=== PATIENT | female | born 1985 | race Caucasian/White ===

== ENCOUNTER → 2023-12-03 10:36 | Outpatient (REF) | payer OTHER, SELFPAY | LOC: RAD 10:36 | PROVIDERS: ATTENDING PHYSICIAN Obstetrics & Gynecology; FAMILY PHYSICIAN Family Medicine | DX: O09.519 Supervision of elderly primigravida, unspecified trimester (principal); O09.529 Supervision of elderly multigravida, unspecified trimester; Z36.0 Encounter for antenatal screening for chromosomal anomalies | CPT/HCPCS: 76815 ==

== ENCOUNTER 2023-12-03 11:11 | Observation (INO) | payer OTHER, SELFPAY ==
[2023-12-03 11:20] VITALS: BP 100/61; BMI 27.3
== END 2023-12-03 12:27 | disposition home or self-care (01) ==
LOC: LDRP 11:11
PROVIDERS: ADMITTING PHYSICIAN Obstetrics & Gynecology; FAMILY PHYSICIAN Family Medicine
DX: O48.0 Post-term pregnancy (principal); Z3A.40 40 weeks gestation of pregnancy
CPT/HCPCS: 59025; 36415; 76815; 86850; 86900; 86901; G0378

== ENCOUNTER 2023-12-06 19:20 | Inpatient (IN) | payer OTHER, SELFPAY ==
[2023-12-06 20:02] VITALS: BMI 27.5
[2023-12-06 20:04] VITALS: BP 114/65
[2023-12-06] MEDS: CYTOTEC 25 MICROGRAM VAG (20:27)
[2023-12-06] MEDS: LR 1000 IV (20:27)
[2023-12-06 20:31] LABS: % Basophils 0.2 % (0-2); % Eosinophils 0.8 % (0-6); % Immature Granulocytes 1.4 % (0-0.5); % Lymphocytes 24.8 % (20.5-51.1); % Monocytes 6.9 % (1.7-9.3); % Neutrophils 65.9 % (42.2-75.2); Absolute Eosinophils 0.1 10^3/uL (0-0.7); Absolute Immature Granulocytes 0.1 10^3/uL (0-0.05); Absolute Lymphocytes 2.1 10^3/uL (1.2-3.4); Absolute Monocytes 0.6 10^3/uL (0.1-0.6); Absolute Neutrophils 5.7 10^3/uL (1.4-6.5); Hemoglobin 12.3 g/dL (12.0-16.0); Mean Corp Hgb Conc. 36.2 g/dL (33.0-37.0); Mean Corpuscular Hgb 33.4 pg (27.0-31.0); Mean Corpuscular Volume 92.4 fL (81.0-99.0); Mean Platelet Volume 10.7 fL (7.4-10.4); Nucleated Red Blood Cells % 0 %; Platelet Count 198 10^3/uL (130-400); Red Blood Cell Count 3.68 10^6/uL (4.20-5.40); White Blood Cell Count 8.6 10^3/uL (4.8-10.8)
[2023-12-07] MEDS: PITOCIN 30 UNITS/NSS 500 ML IV ×2 (09:30→15:13)
[2023-12-07] MEDS: FENTANYL/BUPIVACAINE 100 EPIDURAL (12:52)
[2023-12-07] MEDS: SUBLIMAZE 100 MCG EPIDURAL (12:52)
[2023-12-07] MEDS: CYTOTEC 800 MCG RECTAL (15:23)
[2023-12-07] MEDS: METHERGINE INJECTION 0.200000000000000011 MG IM (15:30)
[2023-12-07] MEDS: TRANEXAMIC ACID 100 IV (15:34)
[2023-12-07 16:05] LABS: Hematocrit 32.2 % (37.0-47.0); Hemoglobin 11.4 g/dL (12.0-16.0); Mean Corp Hgb Conc. 35.4 g/dL (33.0-37.0); Mean Corpuscular Hgb 33.2 pg (27.0-31.0); Mean Corpuscular Volume 93.9 fL (81.0-99.0); Mean Platelet Volume 10.5 fL (7.4-10.4); Platelet Count 195 10^3/uL (130-400); Red Blood Cell Count 3.43 10^6/uL (4.20-5.40); Red Cell Dist. Width 12.2 % (11.5-14.5); White Blood Cell Count 8.4 10^3/uL (4.8-10.8)
[2023-12-07 16:19] LABS: APTT 25.6 Sec (23.4-35.0); Fibrinogen 409 MG/DL (199-459); INR 1.02; PT 13.2 Sec (11.4-14.6)
[2023-12-07] MEDS: TYLENOL 650 MG PO (19:17)
[2023-12-07 19:23] LABS: % Basophils 0.2 % (0-2); % Eosinophils 0.3 % (0-6); % Immature Granulocytes 0.8 % (0-0.5); % Lymphocytes 8.6 % (20.5-51.1); % Monocytes 6.7 % (1.7-9.3); % Neutrophils 83.4 % (42.2-75.2); Absolute Immature Granulocytes 0.1 10^3/uL (0-0.05); Absolute Lymphocytes 1.3 10^3/uL (1.2-3.4); Hematocrit 30.1 % (37.0-47.0); Hemoglobin 10.9 g/dL (12.0-16.0); Mean Corp Hgb Conc. 36.2 g/dL (33.0-37.0); Mean Corpuscular Hgb 33.9 pg (27.0-31.0); Mean Corpuscular Volume 93.5 fL (81.0-99.0); Mean Platelet Volume 10.7 fL (7.4-10.4); Nucleated Red Blood Cells % 0 %; Platelet Count 174 10^3/uL (130-400); Red Blood Cell Count 3.22 10^6/uL (4.20-5.40); White Blood Cell Count 15.5 10^3/uL (4.8-10.8)
[2023-12-07] MEDS: MOTRIN 600 MG PO (23:00)
[2023-12-08] MEDS: TYLENOL 650 MG PO ×5 (00:01→20:38)
[2023-12-08] MEDS: MOTRIN 600 MG PO ×4 (05:37→23:56)
[2023-12-08 06:31] LABS: Hematocrit 27.6 % (37.0-47.0); Hemoglobin 9.9 g/dL (12.0-16.0); Mean Corp Hgb Conc. 35.9 g/dL (33.0-37.0); Mean Corpuscular Hgb 34.6 pg (27.0-31.0); Mean Corpuscular Volume 96.5 fL (81.0-99.0); Mean Platelet Volume 11.1 fL (7.4-10.4); Platelet Count 169 10^3/uL (130-400); Red Blood Cell Count 2.86 10^6/uL (4.20-5.40); Red Cell Dist. Width 12.2 % (11.5-14.5); White Blood Cell Count 13.2 10^3/uL (4.8-10.8)
[2023-12-08] MEDS: PRENATAL PLUS 1 TABLET PO (07:50)
[2023-12-08] MEDS: FEOSOL 325 MG PO (07:50)
--- NOTE | 2023-12-08 15:40 | CON.ORTHO ---
Consultation
-
Date/Time Consultation Requested: 12/08/2023
Date/Time Consultation Performed: 12/08/2023
Requesting Provider: Dr. Quinton Cevallos
Performing Provider: Irma Salas PA-C, for dr. Edouard Rubi
Reason for Consultation: Left shoulder pain
Consultation - Orthopedics
History
History of present illness: This is a 38-year-old female who is 1 day from a vaginal delivery. She reports that while delivering her daughter yesterday, she felt a pulling sensation in the posterior aspect of her left shoulder as she was
holding her legs up and pushing. Since then, she has been experiencing persistent pain in the posterior shoulder. This is worse with overhead reaching and lifting. She has been utilizing Motrin and recently a heating pad. She reports that
heating pad has helped with the discomfort. She is concerned in regards to her limited mobility and being able to lift her .
Past medical history: non significant.
Family history: non contributory.
Review of systems: all systems reviewed and negative except for those menitioned in HPI.
Allergies / Home Medications
Allergy/AdvReac Type Severity Reaction Status Date / Time
No Known Allergies Allergy Verified 12/06/23 20:09
�Medication �Instructions �Recorded
prenat.vits,leanne,xms-[id number] 1 tab PO DAILY Supplement 12/03/23
Physical examination:
General: Well-developed, well-nourished female in no acute distress. AO x 4.
HEENT: Atraumatic, normocephalic, neck supple.
Heart: Regular rate and rhythm.
Lungs: Nonlabored breathing on room air, no audible wheezing.
Left shoulder: Tenderness to palpation about the posterior musculature with associated muscle spasm. No tenderness to palpation about the cuff insertion, posterior joint line, AC joint, or biceps tendon. Range of motion with difficulty on the
extremes secondary to posterior pain.
Radiographic interpretation:
2 view x-rays of the left shoulder from 12/08/2023 shows no evidence of acute osseous abnormalities. No abnormal calcifications or loose bodies. Normal radiographs
Vital Signs / Lab Results
Temp Pulse Resp BP
98.6 F 92 18 114/65
12/06/23 20:04 12/06/23 20:04 12/06/23 20:04 12/06/23 20:04
12/08/23 05:30
Assessment / Plan
Assessment: Left shoulder strain.
Plan: Rosey's left shoulder x-rays are negative for any bony pathology. Based on her exam, I believe her posterior left shoulder pain is coming from a muscular strain secondary to the positioning during delivery. We discussed treatment
recommendations going forward to include continued medication management with alternating Motrin 600 mg every 6 hours and Tylenol every 6 hours. She is currently breast-feeding, but is able, would likely benefit from a muscle relaxer for short
course. I encouraged her to apply a heating pad and massage to the posterior shoulder to help resolve her symptoms. Several gentle stretches were demonstrated for her to work on at her convenience. She will plan to follow-up with our office on an
outpatient basis should her symptoms persist upon discharge.
[2023-12-08] MEDS: SENOKOT-S 1 TABLET PO (23:56)
[2023-12-09] MEDS: MOTRIN 600 MG PO (06:39)
[2023-12-09] MEDS: FEOSOL 325 MG PO (08:27)
[2023-12-09] MEDS: TYLENOL 650 MG PO (08:27)
[2023-12-09] MEDS: PRENATAL PLUS 1 TABLET PO (08:27)
[2023-12-10 12:14] LABS: Syphilis/T. pallidum Ab Reflex Negative (Negative)
== END 2023-12-09 12:20 | disposition home or self-care (01) | DRG 806 ==
LOC: LDRP 19:20
PROVIDERS: Obstetrics & Gynecology; ADMITTING PHYSICIAN Obstetrics & Gynecology; CONSULT PHYSICIAN Specialist
PROC: 0KQM0ZZ Repair Perineum Muscle, Open Approach (ICD-10-PCS; 2023-12-07)
PROC: 10E0XZZ Delivery of Products of Conception, External Approach (ICD-10-PCS; 2023-12-07)
PROC: 3E033VJ Introduction of Other Hormone into Peripheral Vein, Percutaneous Approach (ICD-10-PCS; 2023-12-07)
DX: O70.1 Second degree perineal laceration during delivery (principal); O72.1 Other immediate postpartum hemorrhage; Z37.0 Single live birth; O48.0 Post-term pregnancy; Z3A.41 41 weeks gestation of pregnancy; O75.89 Other specified complications of labor and delivery; S46.912A Strain of unspecified muscle, fascia and tendon at shoulder and upper arm level, left arm, initial encounter; X58.XXXA Exposure to other specified factors, initial encounter
CPT/HCPCS: 73030; 85025; 85027; 85384; 85610; 85730; 86780; 86850; 86900; 86901; 86920